=== PATIENT | female | born 1985 | race Two or more races ===

== ENCOUNTER 2020-06-05 23:28 | Emergency (ER) | payer MEDICAID ==
[~2020-06-05] VITALS: Ht 162.6 cm; Wt 70.5 kg
[2020-06-06 01:59] VITALS: BP 137/98
[2020-06-06] MEDS ORDERED: ACETAMINOPHEN 325 MG TABLET PO ONE (02:30)
[2020-06-06] MEDS ORDERED: METHOCARBAMOL 500 MG TABLET PO ONE (02:30)
== END 2020-06-06 03:04 | disposition home or self-care (01) ==
LOC: EMS 23:29
DX: M54.9 Dorsalgia, unspecified (principal)
CPT/HCPCS: 99283